=== PATIENT | female | born 1965 | race Two or more races ===

== ENCOUNTER 2017-06-19 17:52 | Emergency (ER) | payer OTHER ==
[2017-06-19 17:56] VITALS: BP 130/74; PULSE 72; TEMP 97.6; BMI 16.8
--- NOTE | 2017-06-19 18:50 | PDOC ---
History of Present Illness - General Chief Complaint: Abscess Boil Stated Complaint: ABSCESS BOIL Time Seen by Provider: 06/19/17 18:14 History Source: Patient Exam Limitations: No Limitations - History of Present Illness Initial Comments: 06/19/17 18:52 This is a 51-year-old woman with past medical history of migraines who presents to emergency department with multiple abscesses to left axilla for one week. Patient has not sought care previously for these abscesses as the pain was tolerable until earlier today. Patient tried secure an appointment with her primary doctor who was unable to see her until the end of next week. She denies fevers, chills, redness, streaking, chest pain, shortness of breath numbness or tingling to fingers. Past History - Past Medical History Allergies/Adverse Reactions: Allergies Allergy/AdvReac Type Severity Reaction Status Date / Time No Known Allergies Allergy Verified 06/19/17 17:56 Home Medications: Ambulatory Orders Sumatriptan Succinate [Imitrex] 25 mg PO ASDIR 06/19/17 COPD: No Other medical history: migraines - Suicide/Smoking/Psychosocial Hx Smoking History: Never smoked Review of Systems - Review of Systems Able to Perform ROS?: Yes Is the patient limited Tunisian proficient: No Constitutional: No: Symptoms Reported HEENTM: No: Symptoms Reported Respiratory: No: Symptoms reported Cardiac (ROS): No: Symptoms Reported ABD/GI: No: Symptoms Reported : No: Symptoms Reported Musculoskeletal: No: Symptoms Reported Integumentary: Yes: See HPI Neurological: No: Symptoms reported Endocrine: No: Symptoms Reported Hematologic/Lymphatic: No: Symptoms Reported *Physical Exam - Vital Signs Last Vital Signs Temp Pulse Resp BP Pulse Ox 97.6 F 72 18 130/74 97 06/19/17 17:53 06/19/17 17:53 06/19/17 17:53 06/19/17 17:53 06/19/17 17:53 - Physical Exam General Appearance: Yes: Appropriately Dressed. No: Apparent Distress HEENT: positive: Normal ENT Inspection Neck: positive: Trachea midline, Supple Respiratory/Chest: positive: Lungs Clear, Normal Breath Sounds. negative: Respiratory Distress, Accessory Muscle Use Cardiovascular: positive: Regular Rhythm, Regular Rate, S1, S2. negative: Murmur Gastrointestinal/Abdominal: positive: Normal Bowel Sounds, Soft. negative: Tender Musculoskeletal: positive: Normal Inspection. negative: CVA Tenderness Extremity: positive: Normal Capillary Refill Integumentary: positive: Other (3 lesions noted to the left axilla. Lesion #1 less than 0.25 cm circular nonfluctuant area to the anterior axilla. Lesion #2 immediately posterior to lesion #11 cm circular fluctuant area. Lesion #3 inferior to the initial to lesions 2.5 cm circular fluctuant lesion.) Neurologic: positive: Alert, Normal Response Procedures - Consent Consent obtained: Verbal, From Patient - Incision and Drainage I&D Site: Left: Axilla (lesions #2 and #3) Betadine cleansed: Yes Anesthesia: 2% Lidocaine Volume(ml): 3 Blade Size: 11 Attempts: 1 Plain Packing: No Complications: none Dressing: Yes Progress: 06/19/17 18:51 Patient tolerated procedure well Medical Decision Making - Medical Decision Making 06/19/17 18:55 A/P: 50-year-old woman with history of migraines presents with 3 lesions to the left axilla. Lesion #1 is nonfluctuant less than 0.25 cm. Lesion #2 is posterior to lesion #1 which is one semicircular circular fluctuant lesion Lesion #3 is inferior to lesions #1 and 2 and is 2.5 cm circular fluctuant area Erythema noted covering all 3 lesions. No palpable lymph nodes in the axilla. No streaking present. Axilla is hairless status post shaving Patient with 2 drainable abscesses in the left axilla and one non-drainable abscess with resemblance of hidradenitis I will drain to 2 drainable lesions. Please see procedure note for details Patient instructed to apply warm compresses to non-drainable lesion. Patient follow-up in 2 days for wound check *DC/Admit/Observation/Transfer Diagnosis at time of Disposition: Hidradenitis suppurativa of left axilla - Discharge Dispostion Disposition: HOME Condition at time of disposition: Stable Admit: No - Referrals Referrals: Laura Jade MD [Primary Care Provider] - - Patient Instructions Printed Discharge Instructions: DI for Incision and Drainage of a Skin Abscess Additional Instructions: Return in 2 days for reevaluation of your wound. Keep area dry for the next 24 hours. You may apply antibiotic ointment to area as directed by manufacturers instructions. Return tumor [place] sooner for fevers, chills, she streaking up her arm or any other concerns. - Post Discharge Activity
--- NOTE | 2017-06-21 13:27 | PDOC ---
Patient Follow-up (Call Back) - Post ED Follow - Up Condition at time of discharge: Stable Disposition at time of original discharge: HOME Reason for Call Back: Abnwl. Microbiology (presumed MRSA) Signs/Symptoms Improved: Yes - Disposition Rx Needed: Yes (Rx for Bactrim sent. Pt is aware and will pick remover today.)
== END 2017-06-19 19:07 | disposition home or self-care (01) ==
LOC: JERFT 17:52
PROC: 0X950ZZ Drainage of Left Axilla, Open Approach (ICD-10-PCS; principal; 2017-06-19)
DX: L73.2 Hidradenitis suppurativa (principal)
CPT/HCPCS: 10060; 87070; 87186; 87205; 99281-25

== ENCOUNTER 2022-03-12 10:17 | Emergency (ER) | payer OTHER ==
[2022-03-12 10:27] VITALS: BP 130/89; RESP 18; TEMP 97.6; BMI 14.1
[2022-03-12] MEDS ORDERED: ACETAMINOPHEN 1000 MG/100 ML BAG IVPB ONE (11:40)
[2022-03-12] MEDS ORDERED: SODIUM CHLORIDE 1,000 ML IV STA (11:40)
[2022-03-12] MEDS ORDERED: ACETAMINOPHEN INJECTION 100 ML IVPB ONE (11:51)
[2022-03-12 13:03] LABS: BASO % 0.4 % (0-2.0); EOS % 0.4 % (0-4.5); HEMATOCRIT 38.7 % (32.4-45.2); HEMOGLOBIN 12.5 GM/dL (10.7-15.3); LYMPH % 17.3 % (8-40); MCH 29.6 pg (25.7-33.7); MCHC 32.2 g/dl (32.0-36.0); MEAN CELL VOLUME 91.9 fl (80-96); MEAN PLT VOLUME 9.5 fl (7.5-11.1); MONO % 11.1 % (3.8-10.2); NEUT % 70.8 % (42.8-82.8); PLATELET COUNT 215 10^3/uL (134-434); RBC 4.22 M/mm3 (3.60-5.2); RDW 13.8 % (11.6-15.6); WHITE BLOOD COUNT 8.1 K/mm3 (4.0-10.0)
[2022-03-12 13:16] LABS: CALCIUM 9.5 mg/dL (8.5-10.1)
[2022-03-12 13:17] LABS: ALBUMIN 3.9 g/dl (3.4-5.0); BLOOD UREA NITROGEN 16.6 mg/dL (7-18)
[2022-03-12 13:20] LABS: CREATININE 0.7 mg/dL (0.55-1.3)
[2022-03-12 13:21] LABS: BILIRUBIN,TOTAL 0.3 mg/dL (0.2-1)
[2022-03-12 13:22] LABS: TOT PROT 7.3 g/dl (6.4-8.2)
[2022-03-12 17:40] VITALS: PULSE 79
== END 2022-03-12 18:43 | disposition home or self-care (01) ==
LOC: JER 10:17
PROC: 3E033GC Introduction of Other Therapeutic Substance into Peripheral Vein, Percutaneous Approach (ICD-10-PCS; principal; 2022-03-12)
DX: U07.1 COVID-19 (principal); R55 Syncope and collapse
CPT/HCPCS: 0241U-QW; 36415; 70450-TC; 71045-TC-FY; 71046-TC-FY; 72125-TC; 80053; 84484; 85025; 93005; 93010; 96361; 96374; 99285-25